=== PATIENT | female | born 1960 | race Caucasian/White ===

== ENCOUNTER 2019-04-18 08:08 | Emergency (ER) | payer OTHER ==
[~2019-04-18] VITALS: Ht 157.5 cm; Wt 85.3 kg
[2019-04-18 08:16] VITALS: BP 147/75; Ht 157.5 cm; Wt 85.3 kg
== END 2019-04-18 08:57 | disposition home or self-care (01) ==
LOC: ED 08:08
DX: S00.261A Insect bite (nonvenomous) of right eyelid and periocular area, initial encounter (principal); H05.011 Cellulitis of right orbit; W57.XXXA Bitten or stung by nonvenomous insect and other nonvenomous arthropods, initial encounter; Y93.89 Activity, other specified; Y92.89 Other specified places as the place of occurrence of the external cause; Y99.8 Other external cause status